=== PATIENT | male | born 1950 | race Caucasian/White ===

== ENCOUNTER 2021-08-31 10:34 | Emergency (ER) | payer MEDICARE ==
[~2021-08-31] VITALS: Ht 170.2 cm; Wt 89.4 kg
[2021-08-31] MEDS ORDERED: TAMSULOSIN HCL 0.4 MG CAP.ER.24H ONE (10:53)
[2021-08-31] MEDS ORDERED: TAMS-1 PO (11:42)
[2021-08-31 12:03] LABS: APPEARANCE,URINE Clear (CLEAR); BILIRUBIN,URINE Negative (NEGATIVE); COLOR,URINE Yellow (YELLOW); GLUCOSE, URINE (UA) Negative (NEGATIVE); KETONES,URINE 15 mg/dL (NEGATIVE); LEUKOCYTE ESTERASE ,URINE Negative (NEGATIVE); NITRATE,URINE Negative (NEGATIVE); OCCULT BLOOD,URINE Negative (NEGATIVE); PH,URINE 5.5 (5.0-8.0); PROTEIN,URINE Negative (NEGATIVE)
[2021-08-31 13:05] VITALS: BP 126/72
[2021-08-31] MEDS ORDERED: LIDOCAINE HCL 2% JELLY 5 ML ONE (13:26)
== END 2021-08-31 13:08 | disposition home or self-care (01) ==
LOC: EDH 10:34
DX: R33.9 Retention of urine, unspecified (principal); N47.1 Phimosis; E11.9 Type 2 diabetes mellitus without complications; I10 Essential (primary) hypertension; Z98.890 Other specified postprocedural states; Z91.013 Allergy to seafood
CPT/HCPCS: 51702; 81003